=== PATIENT | male | born 1990 | race African-American/Black ===

== ENCOUNTER 2025-05-15 09:33 | Emergency (ER) | payer OTHER, SELFPAY ==
--- NOTE | 2025-05-15 09:37 | ED.URI ---
HPI - URI/Sore Throat General Chief Complaint: Upper Respiratory Infection Stated Complaint: SORE THROAT Time Seen by Provider: 05/15/25 09:37 Source: patient Mode of arrival: ambulatory Limitations: no limitations History of Present Illness HPI Narrative: Kang is a 35 year old male patient presenting to the clinic today with c/o sore throat that started last night. He reports slight cough and body aches as well. No runny nose/congestion. Had taken tylenol last night for his symptoms. No fever, chills, or body aches. Rates pain 7/10 currently. MD elicited complaint: sore throat and nasal congestion Related Data Allergies Allergy/AdvReac Type Severity Reaction Status Date / Time No Known Allergies Allergy Verified 05/15/25 09:44 Review of Systems Review of Systems: Pertinent positives per HPI. Patient denies any fever, chills, rash, headache, visual changes, dizziness, shortness of breath, chest pain, palpitations, nausea, vomiting, diarrhea, constipation, abdominal pain, or any urinary issues. PMFSH Comments At the time of my signature, I reviewed and agree with the nursing past medical, surgical, social, and family history. There is no relevant family history pertinent to the patient complaint. Exam Narrative: General: Well-developed, well nourished, in no apparent distress Head: Normocephalic, atraumatic Eyes: Pupils equally round and reactive to light bilaterally, EOM intact, sclera and conjunctive clear, no discharge, lids normal Ears: TMs intact and clear, ear canals ceruminous, no drainage, grossly hearing normal. Nose: Nares patent, no discharge, no inflammation, no sinus tenderness. Mouth: Oral pharynx red without lesions or masses, good dentition, MMM. Neck: Supple, trachea midline, no enlargement of anterior or posterior cervical nodes, no thyroid masses or goiter palpable. Cardio: Regular rate and rhythm, s1 and s2 normal, no murmur appreciated. Resp: Clear to auscultation bilaterally, no rhonchi, rales, wheezing or rubs Course Course Level of Care: Express Care Visit Vital Signs Vital signs: Vital Signs Temperature 36.6 C 05/15/25 09:48 Pulse Rate 75 05/15/25 09:48 Respiratory Rate 16 05/15/25 09:48 Blood Pressure 139/80 05/15/25 09:48 Pulse Oximetry 100 05/15/25 09:48 Temperature 36.6 C 05/15/25 09:48 Pulse Rate 75 05/15/25 09:48 Respiratory Rate 16 05/15/25 09:48 Blood Pressure 139/80 05/15/25 09:48 Pulse Oximetry 100 05/15/25 09:48 MDM MDM Narrative Medical decision making narrative: At the time of visit patient is resting comfortably on the exam table. Patient appears to be nontoxic. C/o sore throat that started last night. He reports slight cough and body aches as well. No runny nose/congestion. Had taken Tylenol last night for his symptoms. No fever, chills, or body aches. Rates pain 7/10 currently. On exam patient has bilateral TMs intact and clear, ear canals are ceruminous, no nasal drainage, nares patent, oropharynx red, no cervical lymphadenopathy, lung sounds are clear, heart rates regular rate and rhythm. Strep test was ordered. Labs: Strep test was negative in the clinic today. Plan: I suspect patient has viral pharyngitis. Patient declined needing work note for today. We will send strep for culture. Supportive measures were discussed with the patient and they voiced understanding discharge instructions and agrees to treatment plan. Return precautions reviewed Differential Diagnosis Differential Diagnosis: URI, viral pharyngitis, strep pharyngitis, COVID, influenza, sinusitis, thrush Discharge Plan Discharge Clinical Impression: Pharyngitis Qualifiers: Pharyngitis/tonsillitis etiology: unspecified etiology Qualified Code(s): J02.9 - Acute pharyngitis, unspecified Patient Disposition: Home Condition: Stable Instructions: Antibiotic Form, Pharyngitis (ED) Additional Instructions: Strep test was negative in the clinic today. We will send strep for culture and if this comes back positive, we will contact you and place you on antibiotics at time. Increase fluids and stay well hydrated May take Tylenol or motrin as directed on bottle for pain/fever May use Flonase 1 spray in each nare daily May take OTC antihistamines such as Zyrtec or Claritin daily as directed on bottle May apply Vicks vapor rub to chest to open sinuses Sinus rinses for congestion Cepacol spray, cough drops, throat lozenges, warm tea with honey/lemon, gargle salt water to soothe throat BRAT diet for diarrhea Clear liquids x 24 hours then advance as tolerated for nausea/vomiting Go to the ED if you develop a worsening in your condition- high fever not controlled by Tylenol or Motrin, dehydration, weakness, lethargy, shortness of breath, or chest pain. Follow up with your PCP in 3-5 days if symptoms persist. Patient Language: Green[place]ic Follow-up/Referrals: Heather,Rm Saldivar M.D. [Primary Care Provider] Time of Disposition: 09:54 Quality NIHSS Nursing Documentation ED NIHSS nursing documentation: reviewed/agree
[2025-05-15 09:48] VITALS: BP 139/80; PULSE 75; RESP 16; TEMP 36.6; O2SAT 100
[2025-05-15 10:01] LABS: EDSTREPNEGPOS1 Negative (Negative)
== END 2025-05-15 09:57 | disposition home or self-care (01) ==
PROVIDERS: Emergency Provider Nurse Practitioner Family; PCP Internal Medicine Infectious Disease
DX: J02.9 Acute pharyngitis, unspecified (principal)
CPT/HCPCS: 87081; 87880; 99203; G0463